=== PATIENT | female | born 1975 | race Caucasian/White ===

== ENCOUNTER 2016-11-27 23:02 | Emergency (ER) | payer BC ==
[2016-11-28] MEDS ORDERED: Morphine INJ* 2 MG/ML 1 ML SYRINGE IV ONE ×2 (00:17→00:58)
[2016-11-28] MEDS ORDERED: NS 0.9% 1000 ML* 2,000 ML IV ONE (00:26)
--- NOTE | 2016-11-28 00:33 | ED ---
Abdominal Pain/Female - HPI Summary HPI Summary: Patient is a 41yo otherwise healthy F presenting to ED with diffuse abdominal pain x2 weeks. Pain is intermittent during the day, but has happened everyday in 2 weeks. Denies N/V/C. 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 She states she has had a lot of gas, but also has been cooking food and relates it to that. She was seen at 2 weeks ago and UA and labs were all WNL. She notes the pain is slightly worse in the LLQ and feels as it is cramping and severe at times. Currently she rates her pain a 8/10. Denies CHACON, chest pain, SOB or weakness. She has received the flu shot. Denies sick contacts. Travel hx includes trip to [facility] 4 weeks ago. Denies changes of eating habits. Denies ETOH or other drugs. Denies urinary symptoms, abnormal vaginal discharge or changes in bowel habits. She does have an IUD, which has caused no problems and she has regular periods. - History of Current Complaint Chief Complaint: EDAbdPain Stated Complaint: ABD PAIN Time Seen by Provider: 11/28/16 00:05 Hx Obtained From: Patient Hx Last Menstrual Period: IUD, periods irregular ?: No Onset/Duration: Gradual Onset Timing: Intermittent Episode Lasting - several minutes Severity Initially: Moderate Severity Currently: Moderate Pain Intensity: 8 Pain Scale Used: 0-10 Numeric Location: Diffuse - worse at LLQ, Suprapubic Radiates: No Character: Cramping, Colicy Aggravating Factor(s): Nothing Alleviating Factor(s): Nothing Associated Signs and Symptoms: Positive: Diarrhea - 1x episode this AM - Risk Factors Ectopic Risk Factor: Maternal Age ^ 30, IUD Use Ovarian Torsion Risk Factor: Reproductive Age Allergies/Adverse Reactions: Allergies Allergy/AdvReac Type Severity Reaction Status Date / Time No Known Allergies Allergy Verified 11/27/16 23:09 PMH/Surg Hx/FS Hx/Imm Hx Previously Healthy: Yes Endocrine/Hematology History: Reports: Hx Thyroid Disease - [place] Denies: Hx Diabetes Cardiovascular History: Denies: Hx Hypertension, Hx Pacemaker/ICD Respiratory History: Denies: Hx Asthma, Hx Chronic Obstructive Pulmonary Disease (COPD) GI History: Denies: Hx Ulcer History: Reports: Hx Kidney Stones - 2013, NOT CONFIRMED, NO CURRENT Sx Denies: Hx Dialysis, Hx Renal Disease Musculoskeletal History: Reports: Hx Arthritis - KNEES, FINGERS, Hx Tendonitis - LEFT HAND Sensory History: Denies: Hx Hearing Aid Psychiatric History: Reports: Hx Anxiety, Hx Depression - ON DAILY MEDS Denies: Hx Panic Disorder - Cancer History Hx Chemotherapy: No Hx Radiation Therapy: No - Surgical History Surgery Procedure, Year, and Place: TEENAGER Bunion surgery x2 Hx Anesthesia Reactions: No - Immunization History Hx Pertussis Vaccination: No Immunizations Up to Date: Unable to Obtain/Confirm Infectious Disease History: No Infectious Disease History: Denies: Hx Hepatitis, Hx Human Immunodeficiency Virus (HIV), History Other Infectious Disease, Traveled Outside the [place] in Last 30 Days - Family History Known Family History: Positive: Other - No FHx of Ebola - Social History Occupation: Employed Full-time Lives: With Family Alcohol Use: Weekly Alcohol Amount: 1-2 GLASSES/WEEK Hx Substance Use: No Substance Use Type: Reports: None Hx Tobacco Use: Yes Smoking Status (MU): Current Some Day Smoker Type: Cigarettes Amount Used/How Often: one a month, RARELY Have You Smoked in the Last Year: Yes Review of Systems Constitutional: Negative Eyes: Negative Cardiovascular: Negative Respiratory: Negative Positive: Abdominal Pain - dfell from ladder 12 ft/ pain Positive: no symptoms reported, see HPI Musculoskeletal: Negative Skin: Negative Neurological: Negative Psychological: Normal All Other Systems Reviewed And Are Negative: Yes Physical Exam - Summary Physical Exam Summary: Appearance: WDWN Skin: Soft dry skin, no lesions. Nailbeds pink with no cyanosis or clubbing. Eyes: ALEXANDER, EOMI, Conjunctiva pink with no redness or exudates. ENT: Hearing grossly intact. External auditory canals patent, auricles without lesions, tympanic membranes intact with visible landmarks. Mouth: Dentition without lesions. Neck: Full range of motion. Thyroid not palpable. Trachea at midline. No lymphadenopathy. Pulm: Chest symmetrical expansion. No deformities on posterior chest wall. Lungs clear to auscultation and percussion, without adventitious sounds. CV: No JVD. No deformities on anterior chest wall. Heart soundsRRR, Normal S1 and single S2. No S3, S4, rubs, or murmurs. Carotids 2+ bilaterally without bruits. . Abd: No scars, inspection unremarkable. Bowel sounds normoactive. Pain on palpation in all 4 quadrants with suprapubic tenderness, no pain over epigastrim. Spleen not palpated. Negative CVA tenderness. Negative Rovsing. No tenderness at McBurneys point. exam not performed Musculoskeletal: Full range of motion. no pain, edema, or deformity. Pulses full and equal. No cyanosis, clubbing, or edema. Neuro: Motor strength is 5/5 in upper and lower extremities bilaterally. Derm: No rashes or lesions noted. Triage Information Reviewed: Yes Vital Signs On Initial Exam: Initial Vitals Temp Pulse Resp BP Pulse Ox 98.1 F 79 16 126/93 98 11/27/16 23:03 11/27/16 23:03 11/27/16 23:03 11/27/16 23:03 11/27/16 23:03 Vital Signs Reviewed: Yes Appearance: Positive: Well-Appearing, No Pain Distress, Well-Nourished Skin: Positive: Warm, Skin Color Reflects Adequate Perfusion Eyes: Positive: EOMI, ALEXANDER, Conjunctiva Clear Neck: Positive: Supple, Nontender, No Lymphadenopathy Respiratory/Lung Sounds: Positive: Clear to Auscultation, Breath Sounds Present Cardiovascular: Positive: Normal, RRR Abdomen Description: Positive: Soft, Other: - tenderness in all 4 quadrants, worse at LLQ. Negative holloway's, negative rovsing, no tenderness over mcburneys point. No pain in epigastrium on palpation Bowel Sounds: Positive: Present Musculoskeletal: Positive: Normal, Strength/ROM Intact Neurological: Positive: Alert, Oriented to Person Place, Time, Speech Normal Psychiatric: Positive: Normal, Affect/Mood Appropriate AVPU Assessment: Alert - [place] Coma Scale Best Eye Response: 4 - Spontaneous Best Motor Response: 6 - Obeys Commands Best Verbal Response: 5 - Oriented Diagnostics - Vital Signs Vital Signs Temp Pulse Resp BP Pulse Ox 11/28/16 00:27 18 11/27/16 23:03 98.1 F 79 16 126/93 98 - Laboratory Result Diagrams: 11/28/16 00:22 11/28/16 00:22 Lab Statement: Any lab studies that have been ordered have been reviewed, and results considered in the medical decision making process. Re-Evaluation - Re-Evaluation First Eval Change: Improved - patient feeling improved with morphine Second Eval Change: Worse - patient requesting more pain management as pain is returning at 7/10 Abdominal Pain Fem Course/Dx - Course Course Of Treatment: Labs and UA WNL. Fluids, morphine and pepcid given for relief of symptoms. Abd/pelvis CT w/wo d/t 2 week hx of pain. Encouraged follow up with Dr. Mazariegos or PCP if symptoms persist. Trial of pantoprazole recommended and sent to rx. Will await results of CT. Signed out to Dr. Cohen at 2:30am. - Diagnoses Differential Diagnosis: Positive: Bowel Obstruction, Constipation, Gall Bladder Disease, Other - gastric ulcer, PUD Provider Diagnoses: Abdominal pain Is Visit Related: No Discharge - Discharge Plan Condition: Stable Disposition: HOME Prescriptions: Pantoprazole TAB (NF) [Protonix TAB (NF)] 40 mg PO DAILY #30 tab Patient Education Materials: Pantoprazole (By mouth), Ovarian Cyst (ED) Referrals: Carlos Ball MD [Primary Care Provider] - Aravind Mazariegos MD [Medical Doctor] - Additional Instructions: Follow up with Dr. Mazariegos. Trial 30 days of pantoprazole. Prescription sent to pharmacy.
[2016-11-28 00:51] LABS: Hematocrit 41 % (35-47); Hemoglobin 14.1 g/dl (12.0-16.0); Mean Corpuscular HGB Conc 34 g/dl (31-36); Mean Corpuscular Hemoglobin 30 pg (27-31); Mean Corpuscular Volume 89 fL (80-97); Mean Platelet Volume 8 um3 (7.4-10.4); Red Blood Count 4.64 10^6/ul (4.0-5.4); Red Cell Distribution Width 12 % (10.5-15)
[2016-11-28 00:54] LABS: Urine Bilirubin Negative (Negative); Urine Glucose Negative (Negative); Urine Nitrite Negative (Negative)
[2016-11-28] MEDS ORDERED: HYDROmorphone* 1 MG/ML 1 ML SYR ONE (01:01)
[2016-11-28 01:04] LABS: ALT 16 U/L (7-52); AST 20 U/L (13-39); Albumin 4.6 g/dL (3.2-5.2); Alkaline Phosphatase 49 U/L (34-104); Anion Gap 5 mmol/L (2-11); BUN/Creatinine Ratio 14.5 (8-20); Blood Urea Nitrogen 10 mg/dL (6-24); C Reactive Protein < 1.00 mg/L (< 5.00); CO2 Carbon Dioxide 28 mmol/L (22-32); Calcium 9.7 mg/dL (8.6-10.3); Chloride 104 mmol/L (101-111); EGFR African American 119.4 (>60); EGFR Non-African American 92.9 (>60); Globulin 3.1 g/dL (2-4); Glucose 92 mg/dL (70-100); Lipase 13 U/L (11.0-82.0); Magnesium 2.1 mg/dL (1.9-2.7); Potassium 3.7 mmol/L (3.5-5.0); Sodium 137 mmol/L (133-145); Total Protein 7.7 g/dL (6.4-8.9)
[2016-11-28] MEDS ORDERED: Famotidine IV* 10 MG/ML 2 ML (20 mg) IV SLOW PU ONE (01:12)
[2016-11-28] MEDS ORDERED: Iohexol 300* (CONTRAST) 10 ML SDV IV ONE (02:43)
[2016-11-28 03:45] VITALS: BP 119/93
--- NOTE | 2016-11-28 08:45 | RAD ---
CLINICAL HISTORY: Abdominal pain x2 weeks, worse in the left side COMPARISON: Similar CT examination dated January 04, 2013 TECHNIQUE: Contrast enhanced CT examination of the abdomen and pelvis from the lung bases through the initial tuberosities. The patient received 88 mL Omnipaque 300 intravenously prior to imaging.The patient received oral contrast as well prior to imaging. FINDINGS: VISUALIZED LUNG BASES: The visualized lung bases are grossly clear aside from bibasilar dependent hypoventilatory changes. There is no pleural effusion. ABDOMEN AND PELVIS: The liver, spleen, pancreas and adrenal glands are grossly normal in appearance. The gallbladder is normal. The kidneys are normal in appearance without focal mass, calcification or signs of hydronephrosis. The oral contrast has progressed as far as the base of the cecum. The small and large bowel are not distended. The patient's normal appendix is identified in the right lower quadrant (coronal image 45). There is no gross retroperitoneal or mesenteric lymphadenopathy. The patient's intrauterine device appears to be appropriately position. The pelvic viscera is normal in appearance. The fluid density structure measuring 1.5 cm in the left adnexa processes image 140) is most consistent with a dominant follicle in a woman of this age. There is trace pelvic fluid, also not a pathologic finding in a woman of reproductive age. The abdominal aorta and iliac arteries are normal in course and diameter. There are no sinister bone lesions. IMPRESSION: Normal and age-appropriate CT examination.
--- NOTE | 2016-11-28 20:51 | PN ---
Progress Note - Progress Note Note: Patient called this AM. Preliminary read of CT abd/pelvis shows 18mm involuting left ovarian cyst without free fluid. CT however impression read as follicle. Patient requesting information to be sent to OBGYN for further evaluation and work up. Provider explained OB needs to call for release of information. Patient understands.
--- NOTE | 2016-12-17 23:45 | ED ---
IYaz Erika, scribed for Guanaco Cohen MD on 11/28/16 at 0419 . Progress - Results/Orders Results/Orders: CT A/P W/ read by Imaging laborer ammunition assembly - No evidence of acute pathology. 18 mm involuting left ovarian cyst without free fluid. Re-Evaluation - Re-Evaluation First Eval Re-Evaluation Time: 04:20 Change: Improved - patient feeling improved with morphine Comment: Discussed CT results. Will discharge patient. Second Eval Change: Worse - patient requesting more pain management as pain is returning at 04/08 Course/Dx - Diagnoses Provider Diagnoses: Abdominal pain Discharge - Discharge Plan Condition: Stable Disposition: HOME Prescriptions: Pantoprazole TAB (NF) [Protonix TAB (NF)] 40 mg PO DAILY #30 tab Patient Education Materials: Pantoprazole (By mouth), Ovarian Cyst (ED) Referrals: Aravind Mazariegos MD [Medical Doctor] - Carlos Ball MD [Primary Care Provider] - Additional Instructions: Follow up with Dr. Mazariegos. Trial 30 days of pantoprazole. Prescription sent to pharmacy. The documentation as recorded by the Yaz mcmahon Erika accurately reflects the service I personally performed and the decisions made by me, Guanaco Cohen MD.
== END 2016-11-28 05:20 | disposition home or self-care (01) ==
LOC: ED 23:02
DX: R10.9 Unspecified abdominal pain (principal); R19.7 Diarrhea, unspecified; Z72.0 Tobacco use
CPT/HCPCS: 36415; 74177; 80053; 81003; 83690; 83735; 84702; 85025; 86140; 96374; 99283; J1170; J2270; Q9967